=== PATIENT | female | born 1965 | race Caucasian/White ===

== ENCOUNTER 2016-06-04 16:26 | Emergency (ER) | payer OTHER ==
[~2016-06-04] VITALS: Wt 102.3 kg
[~2016-06-04 16:26] MED LIST: CEPH-443 PO; FAMO-18 PO; HC1C30 TOP; IBUP-1542 PO; MUPI15CR9 TOP; ONDA4TAB35 PO
[2016-06-04] MEDS ORDERED: CIPROFLOXACIN 500 MG TAB PO ONE (17:00)
[2016-06-04] MEDS ORDERED: LIDOCAINE/MYLANTA 40 ML BTL PO ONE (17:00)
[2016-06-04] MEDS ORDERED: ONDANSETRON (ODT) 4 MG TAB ODT STA (17:00)
[2016-06-04] MEDS ORDERED: BELLADONNA/PHENOBARBITAL 5ML CUP PO ONE ×2 (17:00→17:30)
[2016-06-04] MEDS ORDERED: ACETAMINOPHEN 500 MG TAB PO STA (17:00)
[2016-06-04] MEDS ORDERED: CIPR500T4 PO (17:05)
[2016-06-04] MEDS ORDERED: ONDA4TAB14 PO (17:05)
[2016-06-04] MEDS ORDERED: ULT50 PO (17:05)
--- NOTE | 2016-06-04 17:11 | ERD ---
ER Documentation Chief Complaint Date/Time DATE: 06/04/16 TIME: 17:07 Chief Complaint n/v/d, santos, chills, fever HPI Patient was in [facility] 4 days ago when she ate something there. The next day she came [place] the [place] she developed nausea vomiting diarrhea. Diarrhea is watery nonbloody, she does have some abdominal pain she also developed body aches fevers and chills today. She has a little cough. She has diabetes hypertension she takes metformin benazepril hydrochlorothiazide ROS All systems reviewed and are negative except as per history of present illness. Medications Home Meds Active Scripts Tramadol HCl (Tramadol HCl) 50 Mg Tablet, 50 MG PO Q6 Y for PAIN, #10 TAB Prov:MILADYSMARGIE DO 06/04/16 Ondansetron (Ondansetron Odt) 4 Mg Tab.rapdis, 4 MG PO Q6H Y for NAUSEA AND/OR VOMITING, #10 TAB Prov:MARGIE HOOK DO 06/04/16 Ciprofloxacin Hcl* (Ciprofloxacin Hcl*) 500 Mg Tablet, 500 MG PO BID for 3 Days , TAB Prov:MILADYSMARGIE DO 06/04/16 Ibuprofen* (Motrin*) 600 Mg Tab, 600 MG PO Q6, #15 TAB Prov:GIOVANI KEANE MD 11/15/15 Cephalexin* (Keflex*) 500 Mg Capsule, 500 MG PO QID for 7 Days, CAP Prov:GIOVANI KEANE MD 11/15/15 Cephalexin* (Keflex*) 500 Mg Capsule, 500 MG PO QID for 7 Days, CAP Prov:JOELLE KIM PA-C 08/14/15 Mupirocin Calcium* (Mupirocin*) 2% - 15 Gram Cream..g., 1 APPLIC TOP TID, #1 TUB Prov:JOELLE KIM PA-C 08/14/15 Ondansetron Hcl* (Zofran* ODT) 4 mg -ODT Tab.disper, 4 MG PO Q6 Y for NAUSEA AND /OR VOMITING, #10 TAB Prov:ZINA HOANG NP 06/23/15 Famotidine* (Pepcid*) 20 Mg Tablet, 20 MG PO BID for 4 Days, TAB Prov:ZINA HOANG NP 06/23/15 Hydrocortisone* Topical (Hydrocortisone* Topical) 1%-28.35 Gm Cream..g., 1 APPLIC TOP Q6 Y for ITCHING, #1 TUB Prov:SUE SINGH MD 05/28/15 Allergies Allergies: Coded Allergies: No Known Allergy (Unverified , 11/15/15) PMhx/Soc History of Surgery: Yes (Tonsillectomy) Anesthesia Reaction: No Hx Neurological Disorder: No Hx Respiratory Disorders: No Hx Cardiac Disorders: Yes (HTN, HIGH CHOL) Hx Psychiatric Problems: No Hx Miscellaneous Medical Probl: Yes (DM) Hx Alcohol Use: No Hx Substance Use: No Hx Tobacco Use: No Smoking Status: Never smoker Physical Exam Vitals Vital Signs Date Time Temp Pulse Resp B/P Pulse Ox O2 Delivery O2 Flow Rate FiO2 06/04/16 16:36 100.5 90 20 138/72 95 Physical Exam Const: [Alert oriented 4, well-nourished well-developed nontoxic- appearing no apparent distress, interacts appropriately] Head: [Normocephalic/atraumatic, no scalp lesions] Eyes: [Normal Conjunctiva, PERRLA, EOMI no conjunctival injection no conjunctival discharge] ENT: [Normal External Ears, Nose and Mouth, no tonsillar exudates no tonsillar erythema no tonsillar edema oropharynx no erythema. bilateral ear canals are patent, bilateral tympanic membranes nonerythematous.] Neck: [Full range of motion. No meningismus. No cervical lymphadenopathy] Resp: [Clear to auscultation bilaterally, no wheezes rhonchi or rales, breathing normally, no tachypnea no nasal flaring no grunting no accessory muscle use no retractions] Cardio: [Regular rate and rhythm, no murmurs] Abd: [Soft mild diffuse tenderness to palpation non distended. Normal bowel sounds, no rebound rigidity or guarding. Normoactive bowel sounds no flank tenderness, negative McBurney's negative Alvarez sign.] Skin: [No petechiae or rashes, no hives no urticaria no abscess no laceration no new warmth] Back: [No midline or flank tenderness, full range of motion without pain ] Ext: [No cyanosis, clubbing or edema] Neuro: M/S: Alert and oriented 4. Face: EOMI, face and pharynx with normal sensation and function Motor: Normal strength throughout, muscle strength is 5 out of 5 bilateral upper extremity and bilateral lower extremity Sensation: Normal sensation throughout Speech: Normal Cerebel: Normal coordination Normal gait DTR: 2+ and symmetric upper/lower extremities Psych: [Normal Mood and Affect, no suicidal ideation or homicide ideation] Results 24 hrs Current Medications Medications (Trade) Dose Ordered Sig/Brooke Route PRN Reason Start Time Stop Time Status Last Admin Dose Admin Ondansetron HCl (Zofran Odt) 4 mg ONCE STAT ODT 06/04/16 17:00 06/04/16 17:02 DC Acetaminophen (Tylenol Tab) 1,000 mg ONCE STAT PO 06/04/16 17:00 06/04/16 17:02 DC Miscellaneous Medication (Gi Cocktail (2)) 40 ml ONCE ONCE PO 06/04/16 17:00 06/04/16 17:02 DC Belladonna Alkaloids/ Phenobarbital () 10 ml ONCE ONCE PO 06/04/16 17:00 06/04/16 17:02 DC Ciprofloxacin (Cipro) 500 mg ONCE ONCE PO 06/04/16 17:00 06/04/16 17:02 DC Procedures/MDM This could be a traveler's diarrhea as she developed the diarrhea after she went to [place]. Since she went to [place] I will give her antibiotics. We will give Zofran Imodium and Tylenol she has a low-grade temperature. Less likely to be appendicitis cholangitis UTI pyelonephritis choledocholithiasis pancreatitis cholecystitis. Her vital signs are stable she appears well she stable for discharge and outpatient follow-up. Departure Diagnosis: Primary Impression: Nausea vomiting and diarrhea Condition: Stable Patient Instructions: Food Poisoning Or Gastroenteritis (4Y-Adult) MARGIE HOOK DO Jun 04, 2016 17:11
== END 2016-06-04 17:42 | disposition home or self-care (01) ==
LOC: FTE 16:26
DX: R11.2 Nausea with vomiting, unspecified (principal); I10 Essential (primary) hypertension; E11.9 Type 2 diabetes mellitus without complications; R19.7 Diarrhea, unspecified
CPT/HCPCS: Z7610 ×5; 99284

== ENCOUNTER 2018-01-16 11:00 | Emergency (ER) | END 2018-01-16 13:58 | disposition home or self-care (01) ==

== ENCOUNTER 2018-01-24 18:16 | Emergency (ER) | END 2018-01-24 20:32 | disposition home or self-care (01) ==